=== PATIENT | female | born 1950 | race Two or more races ===

== ENCOUNTER 2023-08-17 12:32 | Inpatient (IN) | payer OTHER, MEDICAID ==
[~2023-08-17] VITALS: Ht 193 cm; Wt 84.8 kg
[2023-08-17 13:44] LABS: Urine Bacteria NONE SEEN /hpf (None Seen); Urine Blood Negative /uL (Negative); Urine Clarity HAZY (Clear); Urine Protein, UAD TRACE (Negative); Urine Specific Gravity 1.012 (1.001-1.035); Urine Urobilinogen Normal (Negative); Urine WBC 395 /hpf (0 - 5); Urine WBC Clumps PRESENT /hpf (None Seen)
[2023-08-17] MEDS ORDERED: cefTRIAXone 1GM/50ML D5W 50 ML IV ONE ×2 (13:45→14:12)
[2023-08-17 13:49] LABS: Basophils # (auto) 0.1 10 ^3/uL (0-0.2); Eosinophils # (auto) 0.2 10 ^3/uL (0-0.8); Eosinophils % (auto) 1.4 % (0.0-7.0); Hematocrit 35.6 % (36.0-46.0); Hemoglobin 11.6 g/dL (12.2-16.2); Lymphocytes # (auto) 2.2 10 ^3/uL (0.4-5.4); Lymphocytes % (auto) 17.1 % (10.0-50.0); Mean Corpuscular Hemoglobin 27.8 pg (28.0-32.0); Mean Corpuscular Hgb Conc. 32.7 g/dL (32.0-36.0); Mean Corpuscular Volume 85.1 fL (80.0-100.0); Monocytes # (auto) 0.9 10 ^3/uL (0-1.3); Neutrophils # (auto) 9.5 10 ^3/uL (1.6-8.6); Neutrophils % (auto) 73.5 % (37.0-80.0); Nucleated Red Blood Cells % 0.1 %; Red Blood Cells 4.18 10^6/uL (4.0-5.20); White Blood Cell 12.9 10^3/uL (4.4-10.8)
[2023-08-17 13:55] LABS: Urine Color Straw (Yellow)
[2023-08-17 14:27] LABS: Alanine Aminotransferase 25 U/L (7-40); Albumin 4.6 g/dL (3.2-4.8); Alkaline Phosphatase 54 U/L (46-116); Anion Gap 7 (5-15); Aspartate Aminotransferase 16 U/L (13-40); BUN/Creatinine Ratio 19.4 (10.0-20.0); Blood Urea Nitrogen 21 mg/dL (9-23); Calcium 9.8 mg/dL (8.7-10.4); Carbon Dioxide 26 mmol/L (20-30); Chloride 105 mmol/L (98-107); Glucose 105 mg/dL (74-106); Potassium 4.3 mmol/L (3.5-5.1); Sodium 138 mmol/L (136-145)
[2023-08-17 14:28] LABS: Bilirubin, Total 0.3 mg/dL (0.2-1.0)
[2023-08-17] MEDS ORDERED: MORPHINE SULFATE INJ 2 MG/ml SYRG IV PRN ×2 (15:45)
[2023-08-17] MEDS ORDERED: ONDANSETRON HCL 4 MG/2 ML VIAL IV PRN (15:45)
[2023-08-17] MEDS ORDERED: NITROGLYCERIN 0.4 MG SL TAB SL PRN (15:45)
[2023-08-17] MEDS ORDERED: HYDROcodone-ACET 5/325MG TAB PO PRN (15:45)
[2023-08-17] MEDS ORDERED: DEXTROSE (50%) 50ML SYRG IV PRN (15:45)
[2023-08-17] MEDS ORDERED: ACETAMINOPHEN 325 MG TAB PO PRN (15:45)
[2023-08-17] MEDS ORDERED: METF-372 PO (16:04)
[2023-08-17] MEDS ORDERED: FENO160T PO (16:04)
[2023-08-17] MEDS ORDERED: ENAL1TAB47 PO (16:04)
[2023-08-17] MEDS ORDERED: CITA-77 PO (16:04)
[2023-08-17] MEDS ORDERED: SIMV20TA20 PO (16:04)
[2023-08-17] MEDS ORDERED: SODIUM CHLORIDE 0.9% 1,000 ML IV ONE (16:15)
[2023-08-17] MEDS: InsuLIN REG 1unit/0.01ml Soln (100units/ml) SC SCH (17:00)
[2023-08-17] MEDS: ACCU-CHEK COMFORT CURVE STRIP VI SCH (17:27)
[2023-08-18] VITALS (7 sets, daily range): BP systolic 116–155; BP diastolic 62–70; PULSE 70–80; RESP 16–19; TEMP 97.9–98.7; O2SAT 96–98
[2023-08-18] MEDS: ATORVASTATIN 20 MG TAB PO SCH ×2 (01:06→22:35)
[2023-08-18] MEDS: ACCU-CHEK COMFORT CURVE STRIP VI SCH ×5 (01:06→22:36)
[2023-08-18] MEDS: InsuLIN REG 1unit/0.01ml Soln (100units/ml) SC SCH ×5 (01:07→22:00)
[2023-08-18] MEDS: MEROPENEM 1GM IVPB 100 ML IV SCH ×3 (01:19→22:41)
[2023-08-18 05:05] LABS: Basophils # (auto) 0 10 ^3/uL (0-0.2); Basophils % (auto) 0.5 % (0.0-2.0); Eosinophils # (auto) 0.3 10 ^3/uL (0-0.8); Eosinophils % (auto) 4.3 % (0.0-7.0); Hematocrit 31.5 % (36.0-46.0); Hemoglobin 10.3 g/dL (12.2-16.2); Lymphocytes # (auto) 1.7 10 ^3/uL (0.4-5.4); Lymphocytes % (auto) 23.6 % (10.0-50.0); Mean Corpuscular Hemoglobin 28.2 pg (28.0-32.0); Mean Corpuscular Hgb Conc. 32.7 g/dL (32.0-36.0); Mean Corpuscular Volume 86.2 fL (80.0-100.0); Monocytes # (auto) 0.7 10 ^3/uL (0-1.3); Monocytes % (auto) 10.3 % (0.0-12.0); Neutrophils # (auto) 4.3 10 ^3/uL (1.6-8.6); Neutrophils % (auto) 61.3 % (37.0-80.0); Nucleated Red Blood Cells % 0.1 %; Red Blood Cells 3.65 10^6/uL (4.0-5.20); Red Cell Distribution Width 14.9 % (11.8-14.3)
[2023-08-18 05:19] LABS: Alanine Aminotransferase 21 U/L (7-40); Albumin 4.1 g/dL (3.2-4.8); Alkaline Phosphatase 41 U/L (46-116); Aspartate Aminotransferase 10 U/L (13-40); Blood Urea Nitrogen 17 mg/dL (9-23); Calcium 9.2 mg/dL (8.5-10.1); Chloride 109 mmol/L (98-107); Glucose 134 mg/dL (74-106); Potassium 3.8 mmol/L (3.5-5.1)
[2023-08-18 05:20] LABS: Bilirubin, Total 0.3 mg/dL (0.2-1.0); Total Protein 6.6 g/dL (5.7-8.2)
[2023-08-18 05:28] LABS: Carbon Dioxide 23 mmol/L (20-30)
[2023-08-18 06:53] LABS: Anion Gap 8 (5-15); Sodium 140 mmol/L (136-145)
[2023-08-18] MEDS: ENALAPRIL MALEATE 10 MG TAB PO SCH (10:33)
[2023-08-18] MEDS: CITALOPRAM HYDROBR 20 MG TAB PO SCH (10:34)
[2023-08-18] MEDS: DOCUSATE SOD 100 MG CAP PO PRN (10:34)
[2023-08-18] MEDS: Fenofibrate 160MG TAB PO SCH (10:34)
[2023-08-18] MEDS: ASPirin-EC 81 mg tab PO SCH (10:34)
[2023-08-19] VITALS (7 sets, daily range): BP systolic 114–178; BP diastolic 67–91; PULSE 68–91; RESP 16–20; TEMP 97.9–98.5; O2SAT 95–98
[2023-08-19] MEDS: InsuLIN REG 1unit/0.01ml Soln (100units/ml) SC SCH ×4 (06:03→21:40)
[2023-08-19] MEDS: ACCU-CHEK COMFORT CURVE STRIP VI SCH ×4 (06:03→21:18)
[2023-08-19] MEDS: Fenofibrate 160MG TAB PO SCH (10:00)
[2023-08-19] MEDS: ASPirin-EC 81 mg tab PO SCH (10:05)
[2023-08-19] MEDS: MEROPENEM 1GM IVPB 100 ML IV SCH (10:05)
[2023-08-19] MEDS: CITALOPRAM HYDROBR 20 MG TAB PO SCH (10:06)
[2023-08-19] MEDS: ENALAPRIL MALEATE 10 MG TAB PO SCH (10:06)
[2023-08-19] MEDS: DOCUSATE SOD 100 MG CAP PO PRN (10:14)
[2023-08-19] MEDS: ERTAPENEM SOD INJ 1 GM in SODIUM CHL 0.9% 50 ML IV SCH (14:09)
[2023-08-19] MEDS: ATORVASTATIN 20 MG TAB PO SCH (21:18)
[2023-08-20] VITALS (8 sets, daily range): BP systolic 116–155; BP diastolic 60–89; PULSE 61–81; RESP 15–22; TEMP 97.9–98.8; O2SAT 96–99
[2023-08-20] MEDS: ACCU-CHEK COMFORT CURVE STRIP VI SCH ×4 (07:00→22:20)
[2023-08-20] MEDS: InsuLIN REG 1unit/0.01ml Soln (100units/ml) SC SCH ×4 (07:00→22:00)
[2023-08-20] MEDS: Fenofibrate 160MG TAB PO SCH (10:00)
[2023-08-20] MEDS: ASPirin-EC 81 mg tab PO SCH (11:09)
[2023-08-20] MEDS: CITALOPRAM HYDROBR 20 MG TAB PO SCH (11:09)
[2023-08-20] MEDS: ENALAPRIL MALEATE 10 MG TAB PO SCH (11:10)
[2023-08-20] MEDS: ERTAPENEM SOD INJ 1 GM in SODIUM CHL 0.9% 50 ML IV SCH (11:10)
[2023-08-20] MEDS: DOCUSATE SOD 100 MG CAP PO PRN (11:18)
[2023-08-20] MEDS ORDERED: MELATONIN 5 MG TAB PO ONE (22:00)
[2023-08-20] MEDS: MELATONIN 5 MG TAB PO PRN (22:20)
[2023-08-20] MEDS: ATORVASTATIN 20 MG TAB PO SCH (22:20)
[2023-08-21] VITALS (7 sets, daily range): BP systolic 117–128; BP diastolic 54–78; PULSE 66–80; RESP 18–20; TEMP 97.8–98.5; O2SAT 95–97
[2023-08-21] MEDS: ACCU-CHEK COMFORT CURVE STRIP VI SCH ×4 (06:15→21:50)
[2023-08-21] MEDS: InsuLIN REG 1unit/0.01ml Soln (100units/ml) SC SCH ×4 (06:16→21:51)
[2023-08-21] MEDS: Fenofibrate 160MG TAB PO SCH (09:23)
[2023-08-21] MEDS: CITALOPRAM HYDROBR 20 MG TAB PO SCH (09:29)
[2023-08-21] MEDS: ERTAPENEM SOD INJ 1 GM in SODIUM CHL 0.9% 50 ML IV SCH (09:29)
[2023-08-21] MEDS: ENALAPRIL MALEATE 10 MG TAB PO SCH (09:29)
[2023-08-21] MEDS: ASPirin-EC 81 mg tab PO SCH (09:29)
[2023-08-21 14:04] LABS: COVID19 ANTIGEN SOFIA FIA NEGATIVE (NEGATIVE)
[2023-08-21] MEDS: ATORVASTATIN 20 MG TAB PO SCH (21:40)
[2023-08-21] MEDS: MELATONIN 5 MG TAB PO PRN (21:40)
[2023-08-22 05:00] VITALS: BP 118/53; PULSE 71; RESP 20; TEMP 97.8; O2SAT 96
[2023-08-22] MEDS: ACCU-CHEK COMFORT CURVE STRIP VI SCH ×4 (05:54→21:16)
[2023-08-22] MEDS: InsuLIN REG 1unit/0.01ml Soln (100units/ml) SC SCH ×4 (05:54→21:21)
[2023-08-22 08:00] VITALS: RESP 18
[2023-08-22 08:10] VITALS: BP 108/53; PULSE 73; RESP 20; TEMP 98.4; O2SAT 97
[2023-08-22] MEDS: Fenofibrate 160MG TAB PO SCH (10:00)
[2023-08-22] MEDS: ASPirin-EC 81 mg tab PO SCH (11:29)
[2023-08-22] MEDS: ENALAPRIL MALEATE 10 MG TAB PO SCH (11:35)
[2023-08-22] MEDS: CITALOPRAM HYDROBR 20 MG TAB PO SCH (11:37)
[2023-08-22] MEDS: ERTAPENEM SOD INJ 1 GM in SODIUM CHL 0.9% 50 ML IV SCH (11:38)
[2023-08-22 12:10] VITALS: BP 135/70; PULSE 73; RESP 20; TEMP 98; O2SAT 97
[2023-08-22 20:00] VITALS: PULSE 65; RESP 18; O2SAT 95
[2023-08-22] MEDS: ATORVASTATIN 20 MG TAB PO SCH (21:16)
[2023-08-22] MEDS: DOCUSATE SOD 100 MG CAP PO PRN (21:16)
[2023-08-22] MEDS: MELATONIN 5 MG TAB PO PRN (21:16)
[2023-08-22 22:00] VITALS: BP 130/61; PULSE 65; RESP 18; TEMP 98.6; O2SAT 95
[2023-08-23 05:00] VITALS: BP 124/66; PULSE 73; RESP 16; TEMP 97.9; O2SAT 94
[2023-08-23] MEDS: InsuLIN REG 1unit/0.01ml Soln (100units/ml) SC SCH ×4 (06:23→21:18)
[2023-08-23] MEDS: ACCU-CHEK COMFORT CURVE STRIP VI SCH ×4 (06:23→21:14)
[2023-08-23 09:00] VITALS: BP 130/69; PULSE 83; RESP 21; TEMP 98.1; O2SAT 98
[2023-08-23] MEDS: Fenofibrate 160MG TAB PO SCH (10:40)
[2023-08-23] MEDS: CITALOPRAM HYDROBR 20 MG TAB PO SCH (10:49)
[2023-08-23] MEDS: ASPirin-EC 81 mg tab PO SCH (10:52)
[2023-08-23] MEDS: ENALAPRIL MALEATE 10 MG TAB PO SCH (10:52)
[2023-08-23] MEDS: ERTAPENEM SOD INJ 1 GM in SODIUM CHL 0.9% 50 ML IV SCH (10:53)
[2023-08-23 12:33] VITALS: BP 122/46; PULSE 72; RESP 21; TEMP 98.2; O2SAT 96
[2023-08-23 16:52] VITALS: BP_SYST 108; BP_SYST 91; BP_DIAS 58; PULSE 71; RESP 21; TEMP 97.9; O2SAT 97
[2023-08-23 20:00] VITALS: PULSE 64; RESP 18; O2SAT 97
[2023-08-23] MEDS: MELATONIN 5 MG TAB PO PRN (21:14)
[2023-08-23] MEDS: DOCUSATE SOD 100 MG CAP PO PRN (21:14)
[2023-08-23] MEDS: ATORVASTATIN 20 MG TAB PO SCH (21:14)
[2023-08-23 22:00] VITALS: BP 119/66; PULSE 64; RESP 18; TEMP 97.7; O2SAT 97
[2023-08-24 05:00] VITALS: BP 117/59; PULSE 65; RESP 17; TEMP 97.9; O2SAT 97
[2023-08-24] MEDS: ACCU-CHEK COMFORT CURVE STRIP VI SCH ×3 (06:20→17:20)
[2023-08-24] MEDS: InsuLIN REG 1unit/0.01ml Soln (100units/ml) SC SCH ×3 (06:20→17:20)
[2023-08-24 06:51] LABS: Anion Gap 8 (5-15); Carbon Dioxide 26 mmol/L (20-30); Chloride 104 mmol/L (98-107); Potassium 4.2 mmol/L (3.5-5.1); Sodium 138 mmol/L (136-145)
[2023-08-24 06:52] LABS: Calcium 9.2 mg/dL (8.7-10.4)
[2023-08-24 06:57] LABS: BUN/Creatinine Ratio 21.8 (10.0-20.0); Blood Urea Nitrogen 19 mg/dL (9-23); Glucose 110 mg/dL (74-106)
[2023-08-24 07:02] LABS: Basophils # (auto) 0.1 10 ^3/uL (0-0.2); Eosinophils # (auto) 0.3 10 ^3/uL (0-0.8); Eosinophils % (auto) 4.2 % (0.0-7.0); Hematocrit 34.4 % (36.0-46.0); Hemoglobin 11.2 g/dL (12.2-16.2); Lymphocytes # (auto) 1.6 10 ^3/uL (0.4-5.4); Lymphocytes % (auto) 24.5 % (10.0-50.0); Mean Corpuscular Hemoglobin 28.1 pg (28.0-32.0); Mean Corpuscular Hgb Conc. 32.6 g/dL (32.0-36.0); Mean Corpuscular Volume 86.4 fL (80.0-100.0); Monocytes # (auto) 0.7 10 ^3/uL (0-1.3); Monocytes % (auto) 10.5 % (0.0-12.0); Neutrophils # (auto) 3.9 10 ^3/uL (1.6-8.6); Neutrophils % (auto) 59.8 % (37.0-80.0); Red Blood Cells 3.98 10^6/uL (4.0-5.20); Red Cell Distribution Width 14.6 % (11.8-14.3); White Blood Cell 6.6 10^3/uL (4.4-10.8)
[2023-08-24 09:10] VITALS: BP 103/52; PULSE 66; RESP 21; TEMP 98.2; O2SAT 97
[2023-08-24] MEDS: Fenofibrate 160MG TAB PO SCH (10:00)
[2023-08-24] MEDS: ENALAPRIL MALEATE 10 MG TAB PO SCH (10:00)
[2023-08-24] MEDS: ASPirin-EC 81 mg tab PO SCH (10:33)
[2023-08-24] MEDS: CITALOPRAM HYDROBR 20 MG TAB PO SCH (10:42)
[2023-08-24] MEDS: ERTAPENEM SOD INJ 1 GM in SODIUM CHL 0.9% 50 ML IV SCH (10:42)
[2023-08-24 12:39] VITALS: BP 103/59; PULSE 63; RESP 21; TEMP 98; O2SAT 95
[2023-08-24 16:52] VITALS: BP_SYST 110; BP_SYST 133; BP_DIAS 65; BP_DIAS 80; PULSE 66; PULSE 76; RESP 18; RESP 20; TEMP 97.5; TEMP 98.3; O2SAT 95
== END 2023-08-24 18:02 | disposition home health service (06) | DRG 690 ==
LOC: ER 12:32 → TELE 15:58 → TELE-WESTW 08-18 10:15 → WEST WING 08-21 17:04
PROVIDERS: ADMIT Nurse Practitioner Family; ATTEND Internal Medicine Geriatric Medicine
PROC: 05HF33Z Insertion of Infusion Device into Left Cephalic Vein, Percutaneous Approach (ICD-10-PCS; principal; 2023-08-19)
PROC: B54NZZA Ultrasonography of Left Upper Extremity Veins, Guidance (ICD-10-PCS; 2023-08-19)
DX: N10 Acute pyelonephritis (principal); Z16.24 Resistance to multiple antibiotics; I10 Essential (primary) hypertension; E11.9 Type 2 diabetes mellitus without complications; Z20.822 Contact with and (suspected) exposure to COVID-19; K76.0 Fatty (change of) liver, not elsewhere classified; B96.20 Unspecified Escherichia coli [E. coli] as the cause of diseases classified elsewhere; E78.00 Pure hypercholesterolemia, unspecified; Z85.118 Personal history of other malignant neoplasm of bronchus and lung
CPT/HCPCS: 36415; 76775; 80048; 80053; 81001; 82962; 83605; 85025; 87040; 87086; 87426; G0378; J0696; J1335; J1815; J2185